=== PATIENT | female | born 1965 | race African-American/Black ===

== ENCOUNTER 2017-04-10 23:16 | Inpatient (IN) | payer OTHER, MEDICARE ==
[~2017-04-10] VITALS: Ht 162.6 cm; Wt 99.0 kg
[~2017-04-10 23:16] MED LIST: ASPI81TA11 PO; KEPP1000 PO; LOSA50TA PO; METF500 PO; PRAV10 PO; VITATAB25 PO
[2017-04-10 23:18] VITALS: BP 189/105; PULSE 102; RESP 20; TEMP 98.7; O2SAT 98
[2017-04-10] MEDS ORDERED: LORazepam 2 MG/ML VIAL IM ONE (23:45)
--- NOTE | 2017-04-10 23:54 | PD ---
HPI Chief Complaint: Seizure Time Seen by Provider: 23:54 Travel History International Travel<30 days: No Contact w/Intl Traveler<30days: No Traveled to known affect area: No History of Present Illness HPI This is a 51-year-old female with history of hypertension, diabetes, seizure disorder, PTSD, crack cocaine use, presents to emergency department for evaluation. Patient is very tearful and anxious in the room. She states that at some point today she had a seizure in the people she was with just left her. She does not recall when her last seizure was that she is on Keppra and she states that she takes this regularly. She is a patient of Dr. Macedo with [facility] and states that she is compliant most the time. She states she has had a lifelong struggle with crack cocaine use and she gets clean and then relapses. She states she has been on a binge. She states she is so frustrated with her life right now and disappointed she has contemplated suicide many ways. She states there is just no hope and she does not want to go on anymore. She is pleading for help. She states that if she leaves she will kill herself. PFSH Past Medical History Depression: Yes Cardiovascular Problems: Yes (HTN) High Cholesterol: Yes Diabetes: Yes Diminished Hearing: No Hypertension: Yes Seizures: Yes Menopausal: Yes : 18 Para: 2 Miscarriage: 14 : 2 Past Surgical History Other Surgery: Yes Social History Alcohol Use: Yes (occasional) Tobacco Use: Yes (5 cigarettes per day) Substance Use: Yes (SHE STATES "IM A CRACK ADDICT") Allergies-Medications (Allergen,Severity, Reaction): Coded Allergies: Sulfa (Verified Allergy, Unknown, 04/10/17) Reported Meds & Prescriptions Reported Meds & Active Scripts Active Keppra (Levetiracetam) 1,000 Mg Tab 1,000 Mg PO Q 12 HOURS 30 Days Reported Aspirin EC 81 mg (Aspirin) 81 Mg Tab 81 Mg PO DAILY Vitamin D-1000 (Cholecalciferol) 1,000 Unit Tab 2,000 Unit PO DAILY Losartan Potassium 50 MG (Losartan Potassium) 50 Mg Tab 50 Mg PO DAILY Pravastatin Sodium 10 Mg Tab 1 Tab PO DAILY Glucophage 500 mg (Metformin HCl) 500 Mg Tab 500 Mg PO BIDPC Review of Systems Except as stated in HPI: all other systems reviewed are Neg Physical Exam Narrative GENERAL: Well-nourished female, tearful, anxious, but in no physical distress. SKIN: Focused skin assessment warm/dry. HEAD: Atraumatic. Normocephalic. EYES: Pupils equal and round. No scleral icterus. No injection or drainage. ENT: No nasal bleeding or discharge. Mucous membranes pink and moist. NECK: Trachea midline. No JVD. CARDIOVASCULAR: Tachycardic rate and rhythm. RESPIRATORY: No accessory muscle use. Clear to auscultation. Breath sounds equal bilaterally. GASTROINTESTINAL: Abdomen soft, non-tender, nondistended. Hepatic and splenic margins not palpable. MUSCULOSKELETAL: No obvious deformities. No clubbing. No cyanosis. No edema. NEUROLOGICAL: Awake and alert. No obvious cranial nerve deficits. Motor grossly within normal limits. Normal speech. Data Data Last Documented VS Vital Signs Date Time Temp Pulse Resp B/P Pulse Ox O2 Delivery O2 Flow Rate FiO2 04/10/17 23:18 98.7 102 20 189/105 98 Orders Complete Blood Count With Diff (04/10/17 23:41) Basic Metabolic Panel (Bmp) (04/10/17 23:41) Urinalysis - C+S If Indicated (04/10/17 23:41) Psych Screen (04/10/17 23:41) Lorazepam Inj (Ativan Inj) (04/10/17 23:45) Drug Screen, Random Urine (04/10/17 23:41) Alcohol (Ethanol) (04/10/17 23:41) Levetiracetam (04/10/17 23:47) Magnesium (Mg) (04/10/17 23:47) MDM Medical Decision Making Medical Screen Exam Complete: Yes Emergency Medical Condition: Yes Medical Record Reviewed: Yes Differential Diagnosis Mood disorder versus personality disorder versus adjustment reaction disorder versus medication noncompliance versus subtherapeutic level of antiepileptic medication versus seizure versus electrolyte abnormality Narrative Course 51-year-old female presents to emergency department for evaluation. Patient is tearful and verbalizing suicidal ideations after a crack cocaine binge after a period of being clean. She realizes much frustration in her self. She also reports having a seizure today because she woke up on the ground and the people that she was with had left her. She does have history of this. Lab work is ordered for medical clearance. Due to patient's report of suicide ideation with a plan, she'll be placed under Torres act at this time. Pending no acute lab abnormality, patient will be medically cleared to undergo psychiatric screening for further evaluation and disposition. Mental health screening discussed with the patient. Psychiatric screen ordered. Diagnosis Primary Impression: Substance induced mood disorder Additional Impressions: Suicidal ideation Suicidal intent Seizure disorder Condition: Stable Kerry Loja Apr 10, 2017 23:54
[2017-04-11 00:54] LABS: AUTOMATED NEUTROPHIL # 12.8 TH/MM3 (1.8-7.7); BASOPHIL # 0.1 TH/MM3 (0-0.2); BASOPHIL % 0.4 % (0.0-2.0); EOSINOPHIL % 0.1 % (0.0-4.0); HEMATOCRIT 42.3 % (35.0-46.0); LYMPH % 28.6 % (9.0-44.0); LYMPHOCYTE # 5.7 TH/MM3 (1.0-4.8); MEAN CELL VOLUME 88.9 FL (80.0-100.0); MEAN CORPUSCULAR HEMOGLOBIN 29.6 PG (27.0-34.0); MEAN CORPUSCULAR HGB CONC 33.3 % (32.0-36.0); MONO % 6.1 % (0.0-8.0); NEUT % 64.8 % (16.0-70.0); PLATELET COUNT 239 TH/MM3 (150-450); RED BLOOD COUNT 4.76 MIL/MM3 (4.00-5.30); RED CELL DISTRIBUTION WIDTH 13.9 % (11.6-17.2); WHITE BLOOD COUNT 19.8 TH/MM3 (4.0-11.0)
[2017-04-11 00:56] LABS: HEMO FLAGS AUTO DIFF
[2017-04-11 00:58] LABS: BACTERIA, URINE MOD /hpf; BLOOD, URINE SMALL (NEG); GLUCOSE,URINE NEG (NEG); KETONE, URINE NEG (NEG); MUCUS URINE FEW /lpf (OCC); NITRITE,URINE NEG (NEG); PH, URINE 5.5 (5.0-8.5); RENAL EPITHELIAL CELLS 1 /hpf; SQUAMOUS EPITHELIAL CELL URINE 7 /hpf (0-5); TRANSITIONAL EPI CELLS, URINE <1 /hpf; URINE COLOR LIGHT-YELLOW (YELLW/STRAW)
[2017-04-11 00:59] LABS: COMMENT (UR) CULTURE INDICATED; CULTURE IF INDICATED CULTURE INDICATED
[2017-04-11 01:14] LABS: ANION GAP 7 MEQ/L (5-15); BICARBONATE 30.7 MEQ/L (21.0-32.0); BLOOD UREA NITROGEN 12 MG/DL (7-18); CHLORIDE 102 MEQ/L (98-107); GLOMERULAR FILTRATION RATE 62 ML/MIN (>89); MAGNESIUM 1.9 MG/DL (1.5-2.5); POTASSIUM 3.3 MEQ/L (3.5-5.1); SODIUM (NA) 140 MEQ/L (136-145)
[2017-04-11 01:20] LABS: PLATELET ESTIMATE SMEAR NORMAL (NORMAL); PLATELET MORPHOLOGY NORMAL (NORMAL); SCAN/DIFF AUTO DIFF CONFIRMED; STOMATOCYTES 1+ (NORMAL)
[2017-04-11 01:36] LABS: AMPHETAMINE, URINE NEG (NEG); BARBITURATES, URINE NEG (NEG); COCAINE, URINE POS (NEG)
--- NOTE | 2017-04-11 01:42 | PD ---
Physical Exam Date Seen by Provider: Apr 11, 2017 Time Seen by Provider: 01:41 Narrative GENERAL: This is a well-nourished, well-developed patient, in no apparent distress. SKIN: No rashes, ecchymoses or lesions. Warm and dry. HEAD: Atraumatic. Normocephalic. EYES: PERRL, EOMI, no discharge or injection. No scleral icterus. EARS: Clear NOSE: Nasal turbinates appear normal. THROAT: Mucosa pink and moist. Airway patent. NECK: Trachea midline. supple, moves head freely. LUNGS: Clear to auscultation. CV: Regular in rhythm. ABDOMEN: Soft nontender. EXT: No clubbing cyanosis or edema. Data Data Last Documented VS Vital Signs Date Time Temp Pulse Resp B/P Pulse Ox O2 Delivery O2 Flow Rate FiO2 04/10/17 23:18 98.7 102 20 189/105 98 Orders Complete Blood Count With Diff (04/10/17 23:41) Basic Metabolic Panel (Bmp) (04/10/17 23:41) Urinalysis - C+S If Indicated (04/10/17 23:41) Psych Screen (04/10/17 23:41) Lorazepam Inj (Ativan Inj) (04/10/17 23:45) Drug Screen, Random Urine (04/10/17 23:41) Alcohol (Ethanol) (04/10/17 23:41) Levetiracetam (04/10/17 23:47) Magnesium (Mg) (04/11/17 00:35) Urine Culture (04/11/17 00:35) Levetiracetam (Keppra) (04/11/17 01:45) Potassium Chloride (Kcl) (04/11/17 01:45) Labs Laboratory Tests Test 04/11/17 00:35 White Blood Count 19.8 TH/MM3 Red Blood Count 4.76 MIL/MM3 Hemoglobin 14.1 GM/DL Hematocrit 42.3 % Mean Corpuscular Volume 88.9 FL Mean Corpuscular Hemoglobin 29.6 PG Mean Corpuscular Hemoglobin 33.3 % Concent Red Cell Distribution Width 13.9 % Platelet Count 239 TH/MM3 Mean Platelet Volume 9.7 FL Neutrophils (%) (Auto) 64.8 % Lymphocytes (%) (Auto) 28.6 % Monocytes (%) (Auto) 6.1 % Eosinophils (%) (Auto) 0.1 % Basophils (%) (Auto) 0.4 % Neutrophils # (Auto) 12.8 TH/MM3 Lymphocytes # (Auto) 5.7 TH/MM3 Monocytes # (Auto) 1.2 TH/MM3 Eosinophils # (Auto) 0.0 TH/MM3 Basophils # (Auto) 0.1 TH/MM3 CBC Comment AUTO DIFF Differential Comment AUTO DIFF CONFIRMED Platelet Estimate NORMAL Platelet Morphology Comment NORMAL Stomatocytes 1+ Urine Color LIGHT-YELLOW Urine Turbidity HAZY Urine pH 5.5 Urine Specific [place] 1.006 Urine Protein NEG mg/dL Urine Glucose (UA) NEG mg/dL Urine Ketones NEG mg/dL Urine Occult Blood SMALL Urine Nitrite NEG Urine Bilirubin NEG Urine Urobilinogen LESS THAN 2.0 MG/DL Urine Leukocyte Esterase LARGE Urine RBC 4 /hpf Urine WBC 10 /hpf Urine Squamous Epithelial 7 /hpf Cells Urine Transitional Epithelial <1 /hpf Cells Urine Renal Epithelial Cells 1 /hpf Urine Bacteria MOD /hpf Urine Mucus FEW /lpf Microscopic Urinalysis Comment CULTURE INDICATED Sodium Level 140 MEQ/L Potassium Level 3.3 MEQ/L Chloride Level 102 MEQ/L Carbon Dioxide Level 30.7 MEQ/L Anion Gap 7 MEQ/L Blood Urea Nitrogen 12 MG/DL Creatinine 1.11 MG/DL Estimat Glomerular Filtration 62 ML/MIN Rate Random Glucose 110 MG/DL Calcium Level 9.4 MG/DL Magnesium Level 1.9 MG/DL Urine Opiates Screen NEG Urine Barbiturates Screen NEG Urine Amphetamines Screen NEG Urine Benzodiazepines Screen NEG Urine Cocaine Screen POS Urine Cannabinoids Screen NEG Ethyl Alcohol Level LESS THAN 3 MG/DL [facility] Medical Record Reviewed: Yes Supervised Visit with CODI: Yes Interpretation(s) Laboratory Tests Test 04/11/17 00:35 White Blood Count 19.8 TH/MM3 Red Blood Count 4.76 MIL/MM3 Hemoglobin 14.1 GM/DL Hematocrit 42.3 % Mean Corpuscular Volume 88.9 FL Mean Corpuscular Hemoglobin 29.6 PG Mean Corpuscular Hemoglobin 33.3 % Concent Red Cell Distribution Width 13.9 % Platelet Count 239 TH/MM3 Mean Platelet Volume 9.7 FL Neutrophils (%) (Auto) 64.8 % Lymphocytes (%) (Auto) 28.6 % Monocytes (%) (Auto) 6.1 % Eosinophils (%) (Auto) 0.1 % Basophils (%) (Auto) 0.4 % Neutrophils # (Auto) 12.8 TH/MM3 Lymphocytes # (Auto) 5.7 TH/MM3 Monocytes # (Auto) 1.2 TH/MM3 Eosinophils # (Auto) 0.0 TH/MM3 Basophils # (Auto) 0.1 TH/MM3 CBC Comment AUTO DIFF Differential Comment AUTO DIFF CONFIRMED Platelet Estimate NORMAL Platelet Morphology Comment NORMAL Stomatocytes 1+ Urine Color LIGHT-YELLOW Urine Turbidity HAZY Urine pH 5.5 Urine Specific [place] 1.006 Urine Protein NEG mg/dL Urine Glucose (UA) NEG mg/dL Urine Ketones NEG mg/dL Urine Occult Blood SMALL Urine Nitrite NEG Urine Bilirubin NEG Urine Urobilinogen LESS THAN 2.0 MG/DL Urine Leukocyte Esterase LARGE Urine RBC 4 /hpf Urine WBC 10 /hpf Urine Squamous Epithelial 7 /hpf Cells Urine Transitional Epithelial <1 /hpf Cells Urine Renal Epithelial Cells 1 /hpf Urine Bacteria MOD /hpf Urine Mucus FEW /lpf Microscopic Urinalysis Comment CULTURE INDICATED Sodium Level 140 MEQ/L Potassium Level 3.3 MEQ/L Chloride Level 102 MEQ/L Carbon Dioxide Level 30.7 MEQ/L Anion Gap 7 MEQ/L Blood Urea Nitrogen 12 MG/DL Creatinine 1.11 MG/DL Estimat Glomerular Filtration 62 ML/MIN Rate Random Glucose 110 MG/DL Calcium Level 9.4 MG/DL Magnesium Level 1.9 MG/DL Urine Opiates Screen NEG Urine Barbiturates Screen NEG Urine Amphetamines Screen NEG Urine Benzodiazepines Screen NEG Urine Cocaine Screen POS Urine Cannabinoids Screen NEG Ethyl Alcohol Level LESS THAN 3 MG/DL Differential Diagnosis MDM: High Differential diagnoses: Schizophrenia, schizoaffective disorder, bipolar, anxiety, depression, adjustment reaction, mood disorder NOS, ODD, depressive disorder NOS, dementia, dementia with agitation, psychosis NOS, substance induced mood disorder, intermittent explosive disorder, Asperger syndrome, infection,electrolyte abnormality, malingering. Narrative Course Mental health screening discussed with the patient. Psychiatric screen ordered. The patient been medically cleared. Patient's given her Keppra dose of 1000 mg by mouth. Diagnosis Primary Impression: Substance induced mood disorder Additional Impressions: Suicidal ideation Seizure disorder Suicidal intent Condition: Stable Tobias Valdivia Apr 11, 2017 01:42
[2017-04-11] MEDS ORDERED: POTASSIUM CHLORIDE 20 MEQ CONTROLLED RELEASE TAB PO ONE (01:45)
[2017-04-11] MEDS ORDERED: levETIRAcetam 500 MG TAB PO ONE (01:45)
[2017-04-11 03:20] VITALS: BP 140/74; PULSE 84; RESP 16; O2SAT 99
[2017-04-11 05:06] VITALS: BP 134/83; PULSE 88; RESP 16; TEMP 98.6; O2SAT 97
[2017-04-11] MEDS ORDERED: KEPP10002 PO (05:42)
[2017-04-11] MEDS ORDERED: LOSA50TA PO (05:42)
[2017-04-11] MEDS ORDERED: METF500T PO (05:42)
[2017-04-11] MEDS ORDERED: ASPI81TA11 PO (05:42)
[2017-04-11] MEDS ORDERED: PRAV10TA PO (05:42)
[2017-04-11] MEDS ORDERED: VITA1000 PO (05:42)
[2017-04-11 10:41] VITALS: BP 94/53; PULSE 72; RESP 16; O2SAT 96
[2017-04-11] MEDS ORDERED: ACETAMINOPHEN 325 MG TAB PO PRN (13:00)
[2017-04-11] MEDS ORDERED: LORazepam 0.5 MG TAB PO PRN (13:00)
[2017-04-11] MEDS ORDERED: ALUMINUM/MAGNESIUM/SIMETH 30 ML CUP PO PRN (13:00)
[2017-04-11] MEDS ORDERED: LORazepam 1 MG TAB PO PRN (13:00)
[2017-04-11] MEDS ORDERED: LORazepam 2 MG/ML VIAL IM PRN ×2 (13:00)
[2017-04-11] MEDS ORDERED: MAGNESIUM HYDROXIDE SUSP 30 ML CUP PO PRN (13:00)
--- NOTE | 2017-04-11 13:12 | HHI.HP ---
Provisional Diagnosis Admission Date Henryetta I. Schizophrenia to disorder, bipolar type, cocaine use disorder Henryetta II. deferred Henryetta III. HTN, DM, Seizures Certification of Person's Competence To Provide Express and Informed Consent I have personally examined Caridad Johnson , a person being served at [facility] on, Apr 11, 2017 13:00. Express and informed consent means consent voluntarily given in writing, by a competent person, after sufficient explanation and disclosure of the subject matter involved to enable the person to make a knowing and willful decision without any element of force, fraud, deceit, duress, or other form of constraint or coercion. This person is 18 years of age or older, is not now known to be incompetent to consent to treatment with a guardian advocate, and does not have a health care surrogate or proxy currently making medical treatment decisions. I have found this person to be one of the following: [X] Competent to provide express and informed consent, as defined above, for voluntary admission to this facility and is competent to provide express and informed consent for treatment. He/she has the consistent capacity to make well reasoned, willful, and knowing decisions concerning his or her medical or mental health treatment. The person fully and consistently understands the purpose of the admission for examination/placement and is fully capable of personally exercising all rights [place] Incompetent to provide express and informed consent to voluntary admission, and this is incompetent to provide express and informed consent to treatment. The person must be transferred to involuntary status and a petition for a guardian advocate filed with the Circuit Court. [] Refusing to provide express and informed consent to voluntary admission but is competent to provide express and informed consent for treatment. The person must be discharged or transferred to involuntary status. Form shall be completed within 24 hours of a person's arrival at the receiving facility and filed in the clinical record of each person: 1. Admitted on a voluntary basis 2. Permitted to provide express and informed consent to his/her own treatment 3. Allowed to transfer from involuntary to voluntary status 4. Prior to permitting a person to consent to his or her own treatment after having been previously found incompetent to consent to treatment. History of Present Illness Capacity: Has Capacity HPI The patient is a 51-year-old woman, domiciled alone, unemployed , supported by [facility], with psychiatric history of bipolar disorder, schizoaffective disorder, 3 previous suicidal attempts, psychiatric hospitalizations, cocaine use disorder, medical history of hypertension, diabetes, seizure disorder,who presents to emergency department for evaluation. Patient is very tearful and anxious in the room. She states that at some point today she had a seizure in the people she was with just left her. She does not recall when her last seizure was that she is on Keppra and she states that she takes this regularly. She is a patient of Dr. Macedo with [facility] and states that she is compliant most the time. She states she has had a lifelong struggle with crack cocaine use and she gets clean and then relapses and then become very depressed and suicidal. She states she has been on a binge recently. She states she is so frustrated with her life right now and disappointed she has contemplated suicide many ways. She states there is just no hope and she does not want to go on anymore. She is pleading for help. She states that if she leaves she will kill herself. Patient cannot identify any reason to live, patient cannot identify protective factors. She denies visual and auditory hallucinations, she denies homicidal ideation. Patient is oriented 3, no attention deficit, fluctuation of consciousness. Review of Systems Constitutional: DENIES: Diaphoretic episodes, Fatigue, Fever, Weight gain, Weight loss, Chills, Dizziness, Change in appetite, Night Sweats Endocrine: DENIES: Abnorml menstrual pattern, Heat/cold intolerance, Polydipsia , Polyuria, Polyphagia Eyes: DENIES: Blurred vision, Diplopia, Eye inflammation, Eye pain, Vision loss , Photosensitivity, Double Vision Ears, nose, mouth, throat: DENIES: Tinnitus, Hearing loss, Vertigo, Nasal discharge, Oral lesions, Throat pain, Hoarseness, Ear Pain, Running Nose, Epistaxis, Sinus Pain, Toothache, Odynophagia Respiratory: DENIES: Apneas, Cough, Snoring, Wheezing, Hemoptysis, Sputum production, Shortness of breath Cardiovascular: DENIES: Chest pain, Palpitations, Syncope, Dyspnea on Exertion , PND, Lower Extremity Edema, Orthopnea, Claudication Gastrointestinal: DENIES: Abdominal pain, Black stools, Bloody stools, Constipation, Diarrhea, Nausea, Vomiting, Difficulty Swallowing, Anorexia Genitourinary: DENIES: Abnormal vaginal bleeding, Dysmenorrhea, Dyspareunia, Sexual dysfunction, Urinary frequency, Urinary incontinence, Urgency, Hematuria , Dysuria, Nocturia, Vaginal discharge Musculoskeletal: DENIES: Joint pain, Muscle aches, Stiffness, Joint Swelling, Back pain, Neck pain Hematologic/lymphatic: DENIES: Bruising, Lymphadenopathy Neurologic: DENIES: Abnormal gait, Headache, Localized weakness, Paresthesias, Seizures, Speech Problems, Tremor, Poor Balance Psychiatric: COMPLAINS OF: Depression, Suicidal Ideation, DENIES: Anxiety, Confusion, Mood changes, Hallucinations, Agitation, Homicidal Ideation, Delusions Past Psych History Violence risk - self (6 mos) Increased Substance Abuse History Drugs/Alcohol past 12 months Cocaine use every day Past Family Social History Coded Allergies: Sulfa (Verified Allergy, Unknown, 04/10/17) Reported Medications Pravastatin 10 Mg Tab10 Mg PO DAILY #30 TAB Ref 0 04/11/17 Metformin 500 Mg [id number] Mg PO BIDPC #60 TAB Ref 0 With meals 04/11/17 Losartan 50 Mg Tab50 Mg PO DAILY #30 TAB Ref 0 04/11/17 Levetiracetam (Keppra)1,000 Mg Tab1,000 Mg PO BID #60 TAB Ref 0 04/11/17 Cholecalciferol (Vitamin D-1000)1,000 Unit Tab2,000 Units PO DAILY #1 BOTTLE Ref 0 04/11/[address] (Aspirin EC)81 Mg Tabdr81 Mg PO DAILY Ref 0 04/11/17 Discontinued Reported Medications Aspirin (Aspirin EC 81 mg)81 Mg Tab81 Mg PO DAILY 07/13/16 Cholecalciferol (Vitamin D-[address])1,000 Unit Tab2,000 Unit PO DAILY # 1 TAB 07/13/16 Losartan Potassium 50 MG 50 Mg Tab50 Mg PO DAILY 07/12/16 Pravastatin Sod (Pravastatin Sodium)10 Mg Tab1 Tab PO DAILY 07/12/16 Metformin 500 mg (Glucophage 500 mg)500 Mg [id number] Mg PO BIDPC 07/12/16 Discontinued Scripts Levetiracetam (Keppra)1,000 Mg Tab1,000 Mg PO q 12 hours 30 Days Prov:Caridad Wilson MD 05/30/16 Current Medications Medications (Trade) Dose Ordered Sig/Anthony Route Start Time Stop Time Status Last Admin (Ativan) 1 mg Q6H PRN PO 04/11/17 13:00 UNV (Ativan Inj) 1 mg Q6H PRN IM 04/11/17 13:00 UNV (Ativan) 0.5 mg Q12H PRN PO 04/11/17 13:00 UNV (Ativan Inj) 0.5 mg Q12H PRN IM 04/11/17 13:00 UNV (Tylenol) 650 mg Q4H PRN PO 04/11/17 13:00 UNV (Milk Of Magnesia Liq) 30 ml DAILY PRN PO 04/11/17 13:00 UNV (Mag-Al Plus Susp Liq) 30 ml Q6H PRN PO 04/11/17 13:00 UNV (Habitrol 21 Mg Patch.24 Hr) 1 patch DAILY T-DERMAL 04/11/17 13:00 UNV Family History Patient denies psychiatric family history Social History Patient was born and raised in [facility], she lives alone, unemployed, on SSI Physical Exam Vital Signs Vital Signs Date Time Temp Pulse Resp B/P Pulse Ox O2 Delivery O2 Flow Rate FiO2 04/11/17 10:41 72 16 94/53 96 Room Air 04/11/17 05:06 98.6 Lab Results Labs Laboratory Tests Test 04/11/17 00:35 White Blood Count 19.8 TH/MM3 Red Blood Count 4.76 MIL/MM3 Hemoglobin 14.1 GM/DL Hematocrit 42.3 % Mean Corpuscular Volume 88.9 FL Mean Corpuscular Hemoglobin 29.6 PG Mean Corpuscular Hemoglobin 33.3 % Concent Red Cell Distribution Width 13.9 % Platelet Count 239 TH/MM3 Mean Platelet Volume 9.7 FL Neutrophils (%) (Auto) 64.8 % Lymphocytes (%) (Auto) 28.6 % Monocytes (%) (Auto) 6.1 % Eosinophils (%) (Auto) 0.1 % Basophils (%) (Auto) 0.4 % Neutrophils # (Auto) 12.8 TH/MM3 Lymphocytes # (Auto) 5.7 TH/MM3 Monocytes # (Auto) 1.2 TH/MM3 Eosinophils # (Auto) 0.0 TH/MM3 Basophils # (Auto) 0.1 TH/MM3 CBC Comment AUTO DIFF Differential Comment AUTO DIFF CONFIRMED Platelet Estimate NORMAL Platelet Morphology Comment NORMAL Stomatocytes 1+ Urine Color LIGHT-YELLOW Urine Turbidity HAZY Urine pH 5.5 Urine Specific [place] 1.006 Urine Protein NEG mg/dL Urine Glucose (UA) NEG mg/dL Urine Ketones NEG mg/dL Urine Occult Blood SMALL Urine Nitrite NEG Urine Bilirubin NEG Urine Urobilinogen LESS THAN 2.0 MG/DL Urine Leukocyte Esterase LARGE Urine RBC 4 /hpf Urine WBC 10 /hpf Urine Squamous Epithelial 7 /hpf Cells Urine Transitional Epithelial <1 /hpf Cells Urine Renal Epithelial Cells 1 /hpf Urine Bacteria MOD /hpf Urine Mucus FEW /lpf Microscopic Urinalysis Comment CULTURE INDICATED Sodium Level 140 MEQ/L Potassium Level 3.3 MEQ/L Chloride Level 102 MEQ/L Carbon Dioxide Level 30.7 MEQ/L Anion Gap 7 MEQ/L Blood Urea Nitrogen 12 MG/DL Creatinine 1.11 MG/DL Estimat Glomerular Filtration 62 ML/MIN Rate Random Glucose 110 MG/DL Calcium Level 9.4 MG/DL Magnesium Level 1.9 MG/DL Urine Opiates Screen NEG Urine Barbiturates Screen NEG Urine Amphetamines Screen NEG Urine Benzodiazepines Screen NEG Urine Cocaine Screen POS Urine Cannabinoids Screen NEG Ethyl Alcohol Level LESS THAN 3 MG/DL Mental Status Examination Appearance woman, disheveled, poor hygiene, superficially cooperative, irritable Speech: Unremarkable Orientation: x3 Memory: Unremarkable Thought Process: Circumstantial, Goal Directed Thought Content: Unremarkable Hallucination Type: None Suicidal Ideation: Yes Previous Suicide Attempts: Yes Homicidal Ideation: No Previous Homicide Attempts: No Judgment: WNL Affect: Sad Mood: Sad Motor Activity: Normal gait Assessment & Plan Problem List: (1) Schizoaffective disorder, bipolar type Assessment & Plan: Patient endorses depressive symptoms and suicidal ideation with plan of overdosing. Patient will be admitted for psychiatric stabilization and safety. She will sign voluntarily admission. Will restart her medication for them with his metformin 500 mg, her medication for seizures Keppra 500 mg twice a day, her medication for hypertension losartan 25 mg. 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 We'll start Seroquel 25 mg at bedtime and Zoloft 25 mg daily for depression. ICD Code: F25.0 Assessment & Plan Estimated LOS: Maik Elizabeth MD Apr 11, 2017 13:12
[2017-04-11] MEDS: REMOVE OLD PATCH T-DERMAL SCH (14:00)
[2017-04-11] MEDS: NICOTINE 21 MG/24 HR PATCH T-DERMAL SCH (14:00)
[2017-04-11] MEDS: metFORMIN HCL 500 MG TAB PO SCH ×2 (14:00→18:19)
[2017-04-11 14:15] VITALS: BP 124/67; PULSE 69; RESP 18; TEMP 97.3; O2SAT 98
[2017-04-11] MEDS: LOSARTAN 25 MG TAB PO SCH (15:50)
[2017-04-11] MEDS: levETIRAcetam 500 MG TAB PO SCH ×2 (15:50→22:07)
[2017-04-12 06:09] VITALS: BP 125/72; PULSE 75; RESP 20; TEMP 98.5; O2SAT 98
[2017-04-12] MEDS: NICOTINE 21 MG/24 HR PATCH T-DERMAL SCH (09:00)
[2017-04-12] MEDS: REMOVE OLD PATCH T-DERMAL SCH (09:00)
[2017-04-12] MEDS: metFORMIN HCL 500 MG TAB PO SCH (09:11)
[2017-04-12] MEDS: LOSARTAN 25 MG TAB PO SCH (09:11)
[2017-04-12] MEDS: levETIRAcetam 500 MG TAB PO SCH (09:12)
[2017-04-12] MEDS ORDERED: PNEUMOCOCCAL POLYVALENT INJ 25 MCG/0.5 ML SYR IM ONE (10:00)
[2017-04-12 10:46] LABS: ANION GAP 8 MEQ/L (5-15); BICARBONATE 29.8 MEQ/L (21.0-32.0); BLOOD UREA NITROGEN 11 MG/DL (7-18); CHLORIDE 105 MEQ/L (98-107); GLOMERULAR FILTRATION RATE 75 ML/MIN (>89); POTASSIUM 3.7 MEQ/L (3.5-5.1); SODIUM (NA) 143 MEQ/L (136-145)
[2017-04-12 10:51] LABS: HDL CHOLESTEROL 48.9 MG/DL (40.0-60.0); LDL CHOLESTEROL 57 MG/DL (0-99)
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
[2017-04-12 12:48] LABS: HEMOGLOBIN A1a 1.3 %; HEMOGLOBIN A1b 1.7 %; HEMOGLOBIN Ao 84.2 %; HEMOGLOBIN F 0.3 %; HEMOGLOBIN LA1C 2.1 %; HEMOGLOBIN P3 4.1 %
== END 2017-04-12 17:00 | disposition home or self-care (01) | DRG 885 ==
LOC: NEPD 23:16 → NEDA 04-11 12:07 → H260 04-11 14:15
PROVIDERS: ADMIT Psychiatry & Neurology Psychiatry; ATTEND Psychiatry & Neurology Psychiatry
DX: F25.0 Schizoaffective disorder, bipolar type (principal); F19.94 Other psychoactive substance use, unspecified with psychoactive substance-induced mood disorder; R45.851 Suicidal ideations; E11.9 Type 2 diabetes mellitus without complications; I10 Essential (primary) hypertension; F14.90 Cocaine use, unspecified, uncomplicated; F17.210 Nicotine dependence, cigarettes, uncomplicated; E78.00 Pure hypercholesterolemia, unspecified; Z88.2 Allergy status to sulfonamides; G40.909 Epilepsy, unspecified, not intractable, without status epilepticus; Z79.84 Long term (current) use of oral hypoglycemic drugs; Z91.5 Personal history of self-harm
CPT/HCPCS: 80048; 80061; 80177; 80307; 81001; 83036; 83735; 85025; 87086; 96372; J2060

== ENCOUNTER 2018-01-14 10:50 | Emergency (ER) | payer OTHER ==
[~2018-01-14] VITALS: Ht 162.6 cm; Wt 95.5 kg
[~2018-01-14 10:50] MED LIST changes: -ASPI81TA11 PO; +ASPI81TA23 PO; -KEPP1000 PO; +KEPP10002 PO; -METF500 PO; +METF500T PO; -PRAV10 PO; +PRAV10TA PO; +VITA1000 PO; -VITATAB25 PO
[2018-01-14 11:01] VITALS: BP 146/84; PULSE 61; RESP 18; TEMP 98.6; O2SAT 100
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
[2018-01-14] MEDS ORDERED: TETANUS/DIPHTHERIA TOXOID ADULT 0.5 ML VIAL IM ONE (12:15)
== END 2018-01-14 12:24 | disposition home or self-care (01) ==
LOC: NEPD 10:50
DX: S00.511A Abrasion of lip, initial encounter (principal); S20.319A Abrasion of unspecified front wall of thorax, initial encounter; S60.812A Abrasion of left wrist, initial encounter; Y04.8XXA Assault by other bodily force, initial encounter; Z23 Encounter for immunization
CPT/HCPCS: 90471; 90714